=== PATIENT | female | born 1995 | race Caucasian/White ===

== ENCOUNTER 2023-08-29 09:17 | Day surgery (SDC) | payer SELFPAY ==
--- NOTE | 2023-08-28 08:36 | P.HPOR ---
History of Present Illness H&P Date: 08/28/23 Chief Complaint: Right ankle pain The patient's a 27-year-old female who presents with right ankle pain after an injury on 08/20/2023. She was figure skating when she twisted her ankle and fell. She went to an urgent care and was placed into a splint. She has lateral pain with any attempted weightbearing. She's been in a splint using crutches since the injury. Review of Systems As per HPI Past Medical History Past Medical History: No Reported History Additional Past Medical History / Comment(s): Rt. distal fibula fracture History of Any Multi-Drug Resistant Organisms: None Reported Past Surgical History: Orthopedic Surgery Additional Past Surgical History / Comment(s): Rt. knee arthroscopy 2012 Past Anesthesia/Blood Transfusion Reactions: No Reported Reaction Smoking Status: Former smoker - Past Family History Father Family Medical History: No Reported History Mother Family Medical History: No Reported History Medications and Allergies Home Medications Medication Instructions Recorded Confirmed Type Acetaminophen-Codeine 300-30mg 1 tab PO Q6H PRN 08/26/23 08/26/23 History [Tylenol w/codeine #3] Allergies Allergy/AdvReac Type Severity Reaction Status Date / Time No Known Allergies Allergy Verified 08/26/23 12:18 Physical Examination - Ankle & Foot right Ankle appearance: swelling Tenderness with palpation: lateral ankle, anterolateral ankle Ankle pain worse with weight bearing: Yes Tests: achilles rupture tests: negative, DVT tests: negative Results The patient is a well-developed well-nourished female approximate 5 foot 8, 239 pounds of into more thick habitus. HEENT exam is nonfocal, neck is supple. She has pain with passive motion of her right hip. Straight leg raise is negative. Chest nontender about the right knee. She does have some tenderness about the proximal syndesmosis and fibula. She has moderate lateral ankle swelling. Skin is intact. She is tender over the distal fibula. She's also tender over the distal syndesmosis. Moderate deltoid tenderness is noted. No mid or forefoot tenderness is noted. Her distal neurovascular appears intact in the right lower extremity. - Diagnostic results Ankle/Foot x-ray: image reviewed (3 views of the right ankle obtained in the office show a distal fibular fracture with mild displacement. The tibiofibular overlap appears to be diminished.) Assessment and Plan Assessment: Right distal fibular fracture with syndesmotic disruption Plan: I talked to the patient regarding her condition along with treatment options. At this point I recommended proceeding with surgical intervention. We will plan to proceed with open reduction and internal fixation of her right distal fibular fracture with probable syndesmotic fixation. Potentially we'll perform that as an outpatient procedure. Risks and benefits are discussed at length in layman's terms.
[~2023-08-29 09:17] MED LIST: HYDROmorphone 0.5 MG/0.5 ML SYRINGE IVP PRN; LACTATED RINGERS 1,000 ML IV SCH; MIDAZOLAM 2 MG/2 ML VIAL IV PRN
[2023-08-29] MEDS: LIDOCAINE 1% (10MG/ML) FOR IV START INTRADERMA PRN (11:05)
[2023-08-29] MEDS: ONDANSETRON 4 MG/2 ML VIAL IVP ONE ×2 (11:05→15:35)
[2023-08-29] MEDS: DEXAMETHASONE SOD PHOSPHATE 4 MG/ML 1 ML VIAL IV ONE (11:05)
[2023-08-29] MEDS: LACTATED RINGERS 1,000 ML IV ONE ×3 (11:05→16:42)
[2023-08-29 11:21] LABS: Basophils # (A) 0.1 k/uL (0-0.2); Basophils % (A) 1 %; Eosinophils # (A) 0.2 k/uL (0-0.7); Eosinophils % (A) 2 %; HCT 41.4 % (34.0-46.0); HGB 13.5 gm/dL (11.4-16.0); Lymphocytes # (A) 2.3 k/uL (1.0-4.8); Lymphocytes % (A) 21 %; MCHC 32.6 g/dL (31.0-37.0); MCV 86.1 fL (80.0-100.0); Mean Platelet Volume 9.5; Monocytes # (A) 0.7 k/uL (0-1.0); Monocytes % (A) 6 %; Neutrophils # (A) 7.3 k/uL (1.3-7.7); Neutrophils % (A) 68 %; Platelet Count 260 k/uL (150-450); RDW 13.7 % (11.5-15.5); WBC 10.7 k/uL (3.8-10.6)
[2023-08-29] MEDS: MIDAZOLAM 2 MG/2 ML VIAL IVP ONE ×2 (11:24→14:42)
[2023-08-29] MEDS ORDERED: HYDROmorphone (PF) 1 MG/ML ONE (12:26)
[2023-08-29] MEDS ORDERED: ROPIVACAINE 5 MG/ML 30 ML VIAL ONE (12:26)
[2023-08-29] MEDS ORDERED: LIDOCAINE 1% INJ 10MG/ML (20 ML MDV) ONE (12:26)
[2023-08-29] MEDS ORDERED: fentaNYL (PF) 50 MCG/ML 2 ML AMP ONE (12:26)
[2023-08-29] MEDS ORDERED: KETAMINE HCL IN 0.9 % NACL 50 MG/5 ML SYRINGE ONE (12:26)
[2023-08-29] MEDS ORDERED: DEXAMETHASONE SOD PHOSPHATE 4 MG/ML 1 ML VIAL ONE (12:26)
[2023-08-29] MEDS ORDERED: MIDAZOLAM 2 MG/2 ML VIAL ONE (12:26)
[2023-08-29] MEDS ORDERED: SUCCINYLCHOLINE CHLORIDE 200 MG/10 ML VIAL IV ONE (12:26)
[2023-08-29] MEDS ORDERED: PROPOFOL 10 MG/ML 20 ML VIAL IV ONE (12:26)
[2023-08-29] MEDS: ceFAZolin 1,000 MG in SODIUM CHLORIDE 0.9% 1,000 ML IRRIGATION ONE (12:53)
--- NOTE | 2023-08-29 13:59 | P.OP ---
Date of Procedure: 08/29/23 Preoperative Diagnosis: Right distal fibular fracture with syndesmotic disruption Postoperative Diagnosis: Same Procedure(s) Performed: Open reduction and internal fixation right distal fibular fracture with syndesmotic fixation Implants: Arthrex 8 hole one third tubular plate, tight rope syndesmotic fixation device [facility]: Morgan Encinas Organizational Consultant #1: Wilbert Cali Estimated Blood Loss (ml): 10 Pathology: none sent Condition: stable Disposition: PACU Indications for Procedure: The patient's a 27-year-old female presents after recently injuring her right ankle with a mildly displaced distal fibular fracture with syndesmotic disruption. A discussion of the risks and benefits of operative intervention was made with patient. She opted to proceed with surgery. Operative risks to include infection, neurovascular injury, development of blood clots, possible development of nonunion/malunion and need for subsequent procedures was discussed. Informed consent was obtained. Operative Findings: As below Description of Procedure: The patient was brought to the operating room, and after induction of general anesthesia the right lower extremity was prepped and draped in normal fashion. The tourniquet was inflated to 270 mmHg. An 8 cm incision was then made along the posterior lateral border of the right distal fibula. The skin was incised sharply. Subcu tissues were divided bluntly. Electrocautery was used for hemostasis. The periosteum was elevated over the fracture site. Fracture site was cleaned of clot and debris. The fracture was reduced with a reduction clamp. This was done with the aid of fluoroscopy. An 8 hole one third tubular plate was then contoured and placed in neutralization fashion along the lateral distal fibula. Proximally 3.5 mm cortical screws the appropriate length were placed. Distally a 4.0 cancellus screw was utilized. The ankle was then stressed and the medial clear space was significantly widened. A cannulated drill was then utilized through the plate aiming approximately 30 anteriorly for placement of the syndesmotic tight rope. This was done with the aid of fluoroscopy. This was inserted about 2 cm above the level of the joint. The button was flipped on the far cortex and devices then tensioned with the ankle in neutral dorsiflexion. Final fluoroscopic views including AP, mortise, and lateral views of the ankle showed adequate reduction of the distal fibular fracture along with synagogue of the ankle mortise. The wound was irrigated with normal saline. Subcutaneous tissues reapproximated interrupted 2-0 Vicryl sutures. Skin was reapproximated 3-0 subcuticular Prolene suture. Steri-Strips were applied. A sterile dressing was applied in addition to a bulky splint. The tourniquet was deflated with approximately 55 minutes total tourniquet time. The patient was awoken from general anesthesia and transferred to recovery room in good condition. Blood loss was estimated at 10 mL. No complications were incurred. Sponge and needle counts were correct in the case.
--- NOTE | 2023-08-29 14:04 | FL ---
EXAMINATION TYPE: FL guidance operating room, XR ankle limited RT Intraoperative/procedural fluorosco pic services were provided. Total fluoroscopy time is 24 seconds with a total of 2 submitted images t o PACS. Please see the operative/procedural note for further details. DAP: 61.54 cGycm2
[2023-08-29 14:19] VITALS: TEMP 97.6
[2023-08-29] MEDS: HYDROmorphone 0.5 MG/0.5 ML SYRINGE IVP ONE (14:32)
[2023-08-29] MEDS ORDERED: ONDANSETRON 4 MG/2 ML VIAL ONE (15:18)
[2023-08-29] MEDS ORDERED: KETOROLAC 15 MG/ML 1 ML VIAL ONE (15:46)
[2023-08-29] MEDS: KETOROLAC 15 MG/ML 1 ML VIAL IVP ONE (15:50)
[2023-08-29] MEDS ORDERED: HYDROcodone/APAP 7.5-325MG 1 EACH TAB ONE (16:03)
[2023-08-29] MEDS: HYDROcodone/APAP 7.5-325MG 1 EACH TAB PO ONE ×2 (16:04)
[2023-08-29 16:41] VITALS: BP 108/73; PULSE 73; RESP 20
--- NOTE | 2023-08-31 19:14 | P.ANPRN ---
Procedure Note - Anesthesia - Nerve Block Performed Right Popliteal Single Time Out Performed: Yes Date of Procedure: 08/29/23 Procedure Start Time: Procedure Stop Time: Location of Patient: PreOp Indication: Acute Post-Operative Pain, Requested by Surgeon Sedation Type: Sedate with meaningful contact maintained Preparation: Sterile Prep Position: Left Lateral Needle Types: Pajunk Needle Gauge: 21 Ultrasound used to visualize needle placement: Yes Ultrasound used to observe medication spread: Yes Blood Aspirated: No Pain Paresthesia on Injection Noted: No Resistance on Injection: Normal Image Stored and Saved: Yes Events: Uneventful and Well Tolerated (Ropivacaine 0.5% 20 cc plus dexamethasone 4 mg)
== END 2023-08-29 17:00 | disposition home or self-care (01) ==
LOC: OR 09:17
PROVIDERS: ATTEND Orthopaedic Surgery
DX: S82.831A Other fracture of upper and lower end of right fibula, initial encounter for closed fracture (principal); G89.18 Other acute postprocedural pain; F17.200 Nicotine dependence, unspecified, uncomplicated; K21.9 Gastro-esophageal reflux disease without esophagitis; E66.9 Obesity, unspecified; Z68.37 Body mass index [BMI] 37.0-37.9, adult; Z79.899 Other long term (current) drug therapy; Z98.890 Other specified postprocedural states; W01.0XXA Fall on same level from slipping, tripping and stumbling without subsequent striking against object, initial encounter; Y93.21 Activity, ice skating
CPT/HCPCS: 81025; 64445; 85025; 73600; 27792; C1713; J2250; J0330; J1100; J0690 ×2; J2405; J2001; J3010; J1170 ×2; J2795; J1885; J2704